=== PATIENT | male | born 1945 | race Caucasian/White ===

== ENCOUNTER 2019-01-21 13:02 | Emergency (ER) | payer MEDICARE, MEDICAID ==
[~2019-01-21] VITALS: Ht 177.8 cm; Wt 89.0 kg
[~2019-01-21 13:02] MED LIST: ADLT ASA LOW81 MG PO; ATENOLOL50 MG PO; GLYBURID MCR1.5 MG PO; LORTAB5 PO; MEDDOSEPAK OR; METFORMIN500 M1 PO; NAPROSYN500 MG PO; PRAVACHOL40 MG PO; ULTRAM50 M1 PO; ZESTRIL40 MG PO; ZITHROMAX500 MG PO
[2019-01-21] MEDS ORDERED: ROSUVASTATIN CA40 MG PO (13:34)
[2019-01-21] MEDS ORDERED: TRULICITY0.75 MG/0. SC (13:35)
[2019-01-21] MEDS ORDERED: TRADJENTA5 MG PO (13:36)
[2019-01-21] MEDS ORDERED: DIGOXIN0.125 MG PO (13:36)
[2019-01-21] MEDS ORDERED: XARELTO20 MG PO (13:37)
[2019-01-21 15:20] VITALS: BP 122/73
== END 2019-01-21 15:25 | disposition home or self-care (01) ==
LOC: ED 13:02
DX: S51.011A Laceration without foreign body of right elbow, initial encounter (principal); S41.011A Laceration without foreign body of right shoulder, initial encounter; E11.9 Type 2 diabetes mellitus without complications; I10 Essential (primary) hypertension; F17.220 Nicotine dependence, chewing tobacco, uncomplicated; W18.30XA Fall on same level, unspecified, initial encounter; Y93.9 Activity, unspecified; Y92.009 Unspecified place in unspecified non-institutional (private) residence as the place of occurrence of the external cause; Z79.84 Long term (current) use of oral hypoglycemic drugs

== ENCOUNTER 2020-10-21 14:51 | Emergency (ER) | payer MEDICARE ==
[~2020-10-21] VITALS: Ht 177.8 cm; Wt 90.0 kg
[~2020-10-21 14:51] MED LIST changes: +DIGOXIN0.125 MG PO; +ROSUVASTATIN CA40 MG PO; +TRADJENTA5 MG PO; +TRULICITY0.75 MG/0. SC; +XARELTO20 MG PO
[2020-10-21 17:36] LABS: HEMOGLOBIN 17.6 g/dl (14.0-18.0); IMMATURE GRANULOCYTES 1.2 % (0.0-5.0); MEAN CELL VOLUME 89.3 fL CALC (80.0-100.0); MEAN CORPUSCULAR HGB 30.9 pG CALC (26.0-32.0); MEAN CORPUSCULAR HGB CONC 34.6 g/dL CAL (32.0-36.0); NEUT# 14.11 thou/uL (1.82-7.42); RED BLOOD COUNT 5.69 mill/uL (4.70-6.10); RED CELL DISTRI WIDTH 13.3 % (11.5-15.5)
[2020-10-21 17:38] LABS: HEMATOCRIT 50.8 % (39.0-50.0)
[2020-10-21 17:41] LABS: TOTAL PROTEIN 6.7 g/dL (6.3-8.2)
[2020-10-21 17:42] LABS: CREATININE 1.9 mg/dL (0.7-1.3); POTASSIUM 3.9 mmol/l (3.5-5.1)
[2020-10-21 17:43] LABS: ALBUMIN 3.4 g/dL (3.2-5.0); BILIRUBIN, TOTAL 0.9 mg/dL (0.0-1.4)
[2020-10-21 20:40] VITALS: BP 110/58
== END 2020-10-21 20:35 | disposition left against medical advice (07) ==
LOC: ED 14:51
PROVIDERS: Family Medicine
DX: M54.6 Pain in thoracic spine (principal); M54.5 Low back pain; E87.1 Hypo-osmolality and hyponatremia; N28.9 Disorder of kidney and ureter, unspecified; S51.012A Laceration without foreign body of left elbow, initial encounter; S51.011A Laceration without foreign body of right elbow, initial encounter; E11.9 Type 2 diabetes mellitus without complications; I10 Essential (primary) hypertension; F17.290 Nicotine dependence, other tobacco product, uncomplicated; W20.8XXA Other cause of strike by thrown, projected or falling object, initial encounter; Y93.89 Activity, other specified; Z91.19 Patient's noncompliance with other medical treatment and regimen; Z79.84 Long term (current) use of oral hypoglycemic drugs; Z95.810 Presence of automatic (implantable) cardiac defibrillator

== ENCOUNTER 2020-10-23 12:59 | Observation (INO) | payer MEDICARE ==
[~2020-10-23] VITALS: Ht 177.8 cm; Wt 83.0 kg
[2020-10-23 13:53] LABS: IMMATURE GRANULOCYTES 1.6 % (0.0-5.0); MEAN CELL VOLUME 88.3 fL CALC (80.0-100.0); MEAN CORPUSCULAR HGB 31.4 pG CALC (26.0-32.0); MEAN CORPUSCULAR HGB CONC 35.5 g/dL CAL (32.0-36.0); NEUT# 7.54 thou/uL (1.82-7.42); RED BLOOD COUNT 4.78 mill/uL (4.70-6.10); RED CELL DISTRI WIDTH 13.3 % (11.5-15.5)
[2020-10-23 13:54] LABS: ALBUMIN 2.9 g/dL (3.2-5.0); CREATININE 2.7 mg/dL (0.7-1.3); POTASSIUM 4.2 mmol/l (3.5-5.1); TOTAL PROTEIN 5.9 g/dL (6.3-8.2)
[2020-10-23 13:55] LABS: HEMATOCRIT 42.2 % (39.0-50.0)
[2020-10-23 14:06] LABS: INTERNATIONAL NORMALIZED RATIO 1.5 RATIO (0.7-1.3)
[2020-10-23 19:15] VITALS: BP 119/77
[2020-10-23 19:30] VITALS: BP 111/88
[2020-10-23 19:45] VITALS: BP 104/67
[2020-10-23 20:00] VITALS: BP 93/57
[2020-10-23 22:00] VITALS: BP 118/69
[2020-10-24] VITALS (7 sets, daily range): BP systolic 122–212; BP diastolic 58–79
[2020-10-24 06:49] LABS: URINE BILIRUBIN - DIPSTICK NEGATIVE (NEGATIVE); URINE BLOOD DIPSTICK SMALL (NEGATIVE); URINE COLOR YELLOW; URINE GLUCOSE - DIPSTICK 100 mg/dL (NEGATIVE); URINE KETONE NEGATIVE (NEGATIVE); URINE PROTEIN - DIPSTICK 30 mg/dL (NEG-TRACE); URINE UROBILINOGEN - DIPSTICK 0.2 E.U./dL (0.2)
[2020-10-24 06:57] LABS: URINE LEUK ESTERASE NEGATIVE (NEGATIVE); URINE NITRITE - DIPSTICK NEGATIVE (Negative)
[2020-10-24 06:59] LABS: URINE BACTERIA FEW hpf; URINE EPITHELIAL CELLS FEW EPI/hpf (0-FEW); URINE FINE GRAN CAST FEW lpf; URINE WBC 0-2 WBC/hpf (0-5)
[2020-10-24 07:01] LABS: HEMATOCRIT 44.4 % (39.0-50.0); HEMOGLOBIN 15.6 g/dl (14.0-18.0); MEAN CELL VOLUME 89.2 fL CALC (80.0-100.0); MEAN CORPUSCULAR HGB 31.3 pG CALC (26.0-32.0); MEAN CORPUSCULAR HGB CONC 35.1 g/dL CAL (32.0-36.0); RED BLOOD COUNT 4.98 mill/uL (4.70-6.10); RED CELL DISTRI WIDTH 13.3 % (11.5-15.5)
[2020-10-24 08:24] LABS: CHOLESTEROL HDL RATIO 3.5 (<4.4 (CALC)); POTASSIUM 4.1 mmol/l (3.5-5.1)
[2020-10-24 08:25] LABS: CREATININE 1.6 mg/dL (0.7-1.3)
[2020-10-24] MEDS ORDERED: CELEBREX100 M1 PO (12:35)
== END 2020-10-24 19:28 | disposition left against medical advice (07) ==
LOC: ED 12:59 → ED-I 14:06 → ED 15:22 → ICU 15:23
PROVIDERS: Family Medicine; ADMIT Hospitalist; ATTEND Hospitalist
DX: I63.9 Cerebral infarction, unspecified (principal); R47.81 Slurred speech; R29.810 Facial weakness; R29.702 NIHSS score 2; U07.1 COVID-19; E87.1 Hypo-osmolality and hyponatremia; N28.9 Disorder of kidney and ureter, unspecified; I10 Essential (primary) hypertension; E11.9 Type 2 diabetes mellitus without complications; I25.10 Atherosclerotic heart disease of native coronary artery without angina pectoris; F17.200 Nicotine dependence, unspecified, uncomplicated; Z95.810 Presence of automatic (implantable) cardiac defibrillator; Z79.01 Long term (current) use of anticoagulants; Z86.73 Personal history of transient ischemic attack (TIA), and cerebral infarction without residual deficits; Z79.84 Long term (current) use of oral hypoglycemic drugs

== ENCOUNTER 2021-07-31 09:38 | Emergency (ER) | payer MEDICARE, MEDICAID ==
[~2021-07-31] VITALS: Ht 177.8 cm; Wt 90.0 kg
[~2021-07-31 09:38] MED LIST changes: +CELEBREX100 M1 PO
[2021-07-31 09:43] VITALS: BP 108/67
[2021-07-31 09:45] VITALS: BP 104/68
[2021-07-31 10:37] LABS: HEMATOCRIT 39.7 % (39.0-50.0); IMMATURE GRANULOCYTES 0.5 % (0.0-5.0); MEAN CELL VOLUME 91.9 fL CALC (80.0-100.0); MEAN CORPUSCULAR HGB 30.8 pG CALC (26.0-32.0); MEAN CORPUSCULAR HGB CONC 33.5 g/dL CAL (32.0-36.0); NEUT# 4.98 thou/uL (1.82-7.42); RED BLOOD COUNT 4.32 mill/uL (4.70-6.10); RED CELL DISTRI WIDTH 14.7 % (11.5-15.5)
[2021-07-31 10:41] LABS: HEMOGLOBIN 13.3 g/dl (14.0-18.0)
[2021-07-31 10:43] LABS: ANION GAP 16 (6-22 (CALC)); BILIRUBIN, TOTAL 0.9 mg/dL (0.0-1.4); BUN 18 mg/dL (8-23); BUN/CREATININE RATIO 16 (12-20 (CALC)); CARBON DIOXIDE 20 mmol/l (22-30); CHLORIDE 106 mmol/l (95-108); CREATININE 1.1 mg/dL (0.7-1.3); GFR > 60 ML/MIN (>=60 (CALC)); GFR FOR AFR.AMER. > 60 ML/MIN (>=60 (CALC)); POTASSIUM 4.2 mmol/l (3.5-5.1); SGOT/AST 25 u/l (19-48); SODIUM 138 mmol/l (137-146); TOTAL PROTEIN 6.8 g/dL (6.3-8.2)
[2021-07-31 11:07] LABS: ALBUMIN 3.8 g/dL (3.2-5.0); ALKALINE PHOSPHATASE 112 u/l (38-126)
[2021-07-31] MEDS ORDERED: TRAMADOL HYDROC50 M1 PO (12:14)
[2021-07-31 12:22] VITALS: BP 110/67
== END 2021-07-31 12:41 | disposition left against medical advice (07) ==
LOC: ED 09:38 → ED-I 12:00 → ED 12:41
PROVIDERS: Family Medicine
DX: R55 Syncope and collapse (principal); I10 Essential (primary) hypertension; E11.9 Type 2 diabetes mellitus without complications; I25.10 Atherosclerotic heart disease of native coronary artery without angina pectoris; I25.2 Old myocardial infarction; F17.220 Nicotine dependence, chewing tobacco, uncomplicated; Z95.810 Presence of automatic (implantable) cardiac defibrillator; Z91.19 Patient's noncompliance with other medical treatment and regimen

== ENCOUNTER 2024-04-18 17:18 | Emergency (ER) | payer MEDICARE, MEDICAID ==
[2024-04-18] VITALS (9 sets, daily range): BP systolic 100–127; BP diastolic 57–71
[~2024-04-18] VITALS: Ht 177.8 cm; Wt 77.1 kg
[~2024-04-18 17:18] MED LIST changes: +TRAMADOL HYDROC50 M1 PO
[2024-04-18 17:42] LABS: BASO% 0.3 % (0-3); HEMATOCRIT 44.8 % (39.0-50.0); HEMOGLOBIN 14.9 g/dl (14.0-18.0); IMMATURE GRANULOCYTES 0.2 % (0.0-5.0); LYMPH% 21.5 % (15-41); MEAN CELL VOLUME 89.1 fL CALC (80.0-100.0); MEAN CORPUSCULAR HGB 29.6 pG CALC (26.0-32.0); MEAN CORPUSCULAR HGB CONC 33.3 g/dL CAL (32.0-36.0); MONO% 11.1 % (2-13); NEUT# 7.64 thou/uL (1.82-7.42); NEUT% 63.9 % (42-76); RED BLOOD COUNT 5.03 mill/uL (4.70-6.10); RED CELL DISTRI WIDTH 12.8 % (11.5-15.5)
[2024-04-18 17:55] LABS: ALBUMIN 3.8 g/dL (3.2-5.0); CREATININE 1.4 mg/dL (0.7-1.3); POTASSIUM 3.8 mmol/l (3.5-5.1); TOTAL PROTEIN 7.1 g/dL (6.3-8.2)
== END 2024-04-18 19:17 | disposition left against medical advice (07) ==
LOC: ED 17:18
PROVIDERS: Nurse Practitioner
DX: R07.9 Chest pain, unspecified (principal); I25.10 Atherosclerotic heart disease of native coronary artery without angina pectoris; E11.9 Type 2 diabetes mellitus without complications; F17.200 Nicotine dependence, unspecified, uncomplicated; Z95.810 Presence of automatic (implantable) cardiac defibrillator; Z79.85 Long-term (current) use of injectable non-insulin antidiabetic drugs; Z53.29 Procedure and treatment not carried out because of patient's decision for other reasons